=== PATIENT | female | born 1965 | race Two or more races ===

== ENCOUNTER 2018-07-11 07:00 | Day surgery (SDC) | payer OTHER, MEDICARE ==
[2018-07-10 11:41] VITALS: BMI 25.6
[2018-07-11] MEDS ORDERED: VASOPRESSIN 20 UNITS/ML VIAL IV ONE ×3 (07:26→07:31)
[2018-07-11] MEDS ORDERED: ROCURONIUM BROMIDE 50 MG/5 ML VIAL ONE (07:42)
[2018-07-11] MEDS ORDERED: MIDAZOLAM HCL 2 MG/2 ML SINGLE DOSE VIAL ONE (07:42)
[2018-07-11] MEDS ORDERED: PROPOFOL 20 ML ONE ×2 (07:42)
[2018-07-11] MEDS ORDERED: LIDOCAINE HCL/PF 2% SDV 5ML VIAL ONE (07:55)
[2018-07-11] MEDS ORDERED: ceFAZolin SODIUM 1 GM VIAL ONE (07:56)
[2018-07-11] MEDS ORDERED: GENTAMICIN SO4 80 MG/2 ML VIAL ONE (07:57)
[2018-07-11] MEDS ORDERED: GENTAMICIN SO4 80 MG/2 ML VIAL IVPB ONE (08:05)
[2018-07-11] MEDS ORDERED: ceFAZolin SODIUM 1 GM VIAL IVPB ONE (08:05)
[2018-07-11] MEDS ORDERED: DEXAMETHASONE SOD PHOSPHATE 4 MG/1 ML VIAL ONE (08:08)
[2018-07-11] MEDS ORDERED: ACETAMINOPHEN INJECTION 100 ML IVPB ONE (08:31)
[2018-07-11] MEDS ORDERED: BACITRACIN 15 GM TUBE TOPICAL OINTMENT ONE (08:33)
[2018-07-11] MEDS ORDERED: GLYCOPYRROLATE 0.2 MG/1 ML VIAL ONE (08:38)
[2018-07-11] MEDS ORDERED: NEOSTIGMINE METHYLSULFATE 0.5 MG/ML - 10 ML MDV ONE (08:38)
[2018-07-11] MEDS ORDERED: ELECTROLYTE-148 SOLN 1,000 ML IV SCH ×2 (08:45→11:00)
[2018-07-11] MEDS ORDERED: ACETAMINOPHEN 1000 MG/100 ML VIAL (NON FORMULARY) IVPB PRN (08:46)
--- NOTE | 2018-07-11 08:46 | OP ---
Operative Note - Note: Operative Date: 07/11/18 Pre-Operative Diagnosis: stress incontinence Operation: cysto/suburethral sling (Altiss) Post-Operative Diagnosis: Same as Pre-op Surgeon: Chi Foley Anesthesiologist/[employer]: Luke Garcia Anesthesia: General Estimated Blood Loss (mls): 10 Drains & Tubes with Location: [facility] Operative Report Dictated: Yes
[2018-07-11] MEDS ORDERED: PROMETHAZINE HCL 25 MG/1 ML VIAL IVPUSH PRN ×2 (08:55→11:02)
[2018-07-11] MEDS ORDERED: ONDANSETRON 4 MG/2 ML VIAL IVPUSH PRN ×2 (08:55→11:02)
[2018-07-11] MEDS ORDERED: LACTATED RINGERS SOLUTION 1,000 ML IV SCH ×2 (09:00→11:00)
--- NOTE | 2018-07-11 09:31 | OP ---
DATE OF OPERATION: 07/11/2018 PREOPERATIVE DIAGNOSIS: Stress urinary incontinence. POSTOPERATIVE DIAGNOSIS: Stress urinary incontinence. PROCEDURE: Cystoscopy, suburethral sling placement, Altis by [employer]. SURGEON: Jasmin Malin MD INDICATION: Patient is a 53-year-old female with stress urinary incontinence. After reviewing treatment options, patient elected to undergo a sling. She understood the risks of bleeding, infection, persistent incontinence, stricture formation, de altaf urge incontinence, potential injury to adjacent organs, potential need for additional procedures, especially for urinary retention, also aware of the FDA warnings on synthetic mesh. After informed consent was obtained, patient was taken to the OR, placed supine on the table. Cardiac monitoring administered. General anesthesia established. She was prepped and draped in dorsal lithotomy position. She was given 1 g of Ancef and 80 of gentamicin. At this point, the lower abdomen and vagina were prepped and draped in standard surgical fashion. A Pena catheter was inserted. Pitressin was injected into the mid-urethra to separate the vaginal lining from the undersurface of the urethra. A midline incision was created approximately 2-3 cm in length, and the vaginal epithelium was sharply dissected free from the undersurface of the urethra and extending laterally until the obturator membrane could be felt bilaterally. Using both blunt and sharp dissection, a wide plane was created. At this point then, the trocar was attached to the anchor and attention turned first to the patient's left side. The trocar was advanced until the obturator membrane was felt. The obturator membrane was pierced, and there was a slight turn to engage the anchor into the obturator membrane. Then, the trocar removed. A slight tug on the sling revealed adequate placement and tension. In the same fashion, a second trocar was attached for the placement of the anchor on the patient's right side. The trocar was advanced until obturator membrane was felt, and then, the obturator membrane was pierced with the trocar with a slight turn to engage the anchor and then trocar removed. Inspection of the sling revealed that it was flat up against the urethra, and a running 0 clamp was placed so there was no undue tension between the undersurface of the urethra and sling. The stitch attaching to the sling was then cut flush to the vaginal epithelium. Pena catheter was removed, and cystoscopy was performed. There was no evidence of any sling erosion, good efflux bilaterally from the ureteral orifice. Pena catheter was then re-inserted, and attention was turned to closure of the vaginal epithelium which was closed with a locking 2-0 Vicryl suture. Vaginal packing was then placed. Patient awoken from anesthesia and transferred to recovery in stable condition. There were no complications. Estimated blood loss was 10 mL. JASMIN MALIN M.D. [id number]
[2018-07-11] MEDS: ACETAMINOPHEN 1000 MG/100 ML VIAL (NON FORMULARY) IVPB PRN (16:23)
[2018-07-11] MEDS ORDERED: PT OWN MED DRAWER 7, Y5N ONE (18:32)
[2018-07-12] MEDS: ACETAMINOPHEN 1000 MG/100 ML VIAL (NON FORMULARY) IVPB PRN (02:20)
[2018-07-12 06:47] VITALS: BP 96/62; PULSE 63; TEMP 97.8
== END 2018-07-12 11:45 | disposition home or self-care (01) ==
LOC: JASU-SURG 07:00 → JASUSAT 07:00 → J8W 12:24 → JASUSAT 07-12 11:45
PROVIDERS: ATTEND Urology
PROC: 0TSD0ZZ Reposition Urethra, Open Approach (ICD-10-PCS; principal; 2018-07-11 07:30)
DX: N39.3 Stress incontinence (female) (male) (principal)
CPT/HCPCS: 94760; J0131